=== PATIENT | female | born 1950 | race Caucasian/White ===

== ENCOUNTER 2017-02-02 11:15 | Emergency (ER) | payer MEDICAID, OTHER ==
[2017-02-02 11:27] VITALS: BP 137/83; PULSE 76; RESP 17; TEMP 98.7; O2SAT 97
[2017-02-02 11:42] VITALS: BMI 24.0
--- NOTE | 2017-02-02 12:13 | C.PDOC ---
History Of Present Illness 66 yo female c/o right ear ringing for 3 weeks. Was seen by PMD last week, treated with antibiotic drops but symptoms persist. Denies pain or discharge. Notes symptoms started after cataract surgery. No fever. Time Seen by Provider: 02/02/17 11:41 Chief Complaint (Nursing): ENT Problem History Per: Patient, Family History/Exam Limitations: Language Barrier Onset/Duration Of Symptoms: Days Current Symptoms Are (Timing): Still Present Past Medical History Vital Signs: Last Vital Signs Temp 98.7 F 02/02/17 11:26 Pulse 76 02/02/17 11:26 Resp 17 02/02/17 11:26 BP 137/83 02/02/17 11:26 Pulse Ox 97 02/02/17 12:15 - Medical History PMH: Arthritis, Asthma, Diabetes, HTN, Hypercholesterolemia, Osteoporosis Denies: Dementia, Chronic Kidney Disease Surgical History: Appendectomy (2002) - [facility] Procedures DRAINAGE OF RIGHT UPPER LOBE BRONCHUS, ENDO, DIAGN (08/08/16) EXCISION OF RIGHT UPPER LUNG LOBE, ENDO, DIAGN (08/08/16) Family History: States: Unknown Family Hx - Social History Hx Tobacco Use: No Hx Alcohol Use: No Hx Substance Use: No - Immunization History Hx Tetanus Toxoid Vaccination: No Hx Influenza Vaccination: No Hx Pneumococcal Vaccination: No Review Of Systems Except As Marked, All Systems Reviewed And Found Negative. Physical Exam - Physical Exam Appears: Well, Non-toxic, No Acute Distress Skin: Normal Color, Warm, Dry Head: Atraumatic Eye(s): bilateral: Normal Inspection, PERRL, EOMI Ear(s): Left: Normal, Right: TM Obscured By Wax, Bilateral: Other (NO mastoid or tragus tenderness. No exudates. ) Nose: Normal Oral Mucosa: Moist Throat: Normal, No Erythema, No Exudate Neck: Normal, Normal ROM, Supple Lymphatic: Normal Exam Chest: Symmetrical Cardiovascular: Rhythm Regular Respiratory: Normal Breath Sounds Back: Normal Inspection Extremity: Normal ROM Neurological/Psych: Oriented x3, Normal Speech, Other (no focal deficits) ED Course And Treatment O2 Sat by Pulse Oximetry: 97 Progress Note: Instructed ENT follow up in 1-2 days. Case discussed with Dr Ordonez, agreed upon plan and treatment. Disposition - Disposition Referrals: Danie Martin MD [Staff Provider] - Disposition: HOME/ ROUTINE Disposition Time: 12:07 Condition: STABLE Additional Instructions: Vaya a patino mdico o la clnica en 2-5 helton sin falta, para mas evaluacin. Yutan los medicamentos shannon indicado. Volver a la jourdan de emergencia en cualquier momento si los sntomas persisten o empeoran. Prescriptions: Bioflav,Lemon/Vit Bcomp,C [Lipo-Flavonoid Plus Caplet] 1 each PO TID #21 tablet Carbamide Peroxide [Debrox Ear Drops] 3 drop AD BID #1 bottle Instructions: Tinnitus (ED) Print Language: WELSH - Clinical Impression Clinical Impression: Tinnitus
== END 2017-02-02 12:28 | disposition home or self-care (01) ==
LOC: C.ER 11:15
DX: H93.11 Tinnitus, right ear (principal); M81.0 Age-related osteoporosis without current pathological fracture; E78.00 Pure hypercholesterolemia, unspecified; I10 Essential (primary) hypertension; E11.9 Type 2 diabetes mellitus without complications

== ENCOUNTER 2017-02-20 09:04 | Emergency (ER) | payer MEDICAID ==
[2017-02-20 09:05] VITALS: BMI 24.0
[2017-02-20 09:09] VITALS: TEMP 98.7
--- NOTE | 2017-02-20 10:35 | C.PDOC ---
History Of Present Illness 66-year-old female, presents to the emergency department with complaints of fall. Patient states she sustained an injury to her right knee, right arm an right side of face s/p fall, just prior to arrival. Patient denies LOC and is up to date w/ tetanus. No numbness or weakness. Time Seen by Provider: 02/20/17 09:18 Chief Complaint (Nursing): Lower Extremity Problem/Injury Past Medical History Reviewed: Historical Data, Nursing Documentation, Vital Signs Vital Signs: Last Vital Signs Temp 98.7 F 02/20/17 09:07 Pulse 88 02/20/17 10:42 Resp 18 02/20/17 10:42 BP 146/75 02/20/17 10:42 Pulse Ox 97 02/20/17 11:53 - Medical History PMH: Arthritis, Asthma, Diabetes, HTN, Hypercholesterolemia, Osteoporosis Denies: Dementia, Chronic Kidney Disease Surgical History: Appendectomy (2002) - [facility] Procedures DRAINAGE OF RIGHT UPPER LOBE BRONCHUS, ENDO, DIAGN (08/08/16) EXCISION OF RIGHT UPPER LUNG LOBE, ENDO, DIAGN (08/08/16) Family History: States: Unknown Family Hx - Social History Hx Tobacco Use: No Hx Alcohol Use: No Hx Substance Use: No - Immunization History Hx Tetanus Toxoid Vaccination: No Hx Influenza Vaccination: No Hx Pneumococcal Vaccination: No Physical Exam - Physical Exam Appears: Non-toxic, No Acute Distress Extremity: Other (right arm: tenderness to lateral forearm. No deformity or swelling. Tenderness to patella w abrasion) Neurological/Psych: Oriented x3, Other (right arm: tenderness to lateral forearm. No deformity or swelling. Tenderness to patella w abrasion) ED Course And Treatment O2 Sat by Pulse Oximetry: 97 Medical Decision Making Medical Decision Making: x rays all neg, Results discussed with pt Plan dc home symptomatic med Disposition Counseled Patient/Family Regarding: Diagnosis, Need For Followup - Disposition Referrals: Clinic,Med Surg [Primary Care Provider] - Disposition: HOME/ ROUTINE Disposition Time: 10:34 Condition: GOOD Additional Instructions: Tylenol or motrin for pain Instructions: Contusion in Adults (DC) Forms: Work Excuse Print Language: MALIAN - Clinical Impression Clinical Impression: Fall, Multiple contusions - Scribe Statement The provider has reviewed the documentation as recorded by the Scribhannah Sales All medical record entries made by the Scribe were at my direction and personally dictated by me. I have reviewed the chart and agree that the record accurately reflects my personal performance of the history, physical exam, medical decision making, and the department course for this patient. I have also personally directed, reviewed, and agree with the discharge instructions and disposition.
[2017-02-20] MEDS ORDERED: Bacitracin 500 Units/gm Oint Foilpak UD ONE (10:39)
[2017-02-20 10:43] VITALS: BP 146/75; PULSE 88; RESP 18
--- NOTE | 2017-02-20 10:57 | RAD ---
PROCEDURE: Mandible HISTORY: fall pain rt side COMPARISON: Not available TECHNIQUE: Multiple views including bilateral obliques FINDINGS: Examination technically limited. Unable to adequately evaluate temporomandibular joints. No evidence of fracture. No lytic or blastic osseous lesion. IMPRESSION: No n acute fracture. Limited evaluation of temporomandibular joints.
--- NOTE | 2017-02-20 11:01 | RAD ---
PROCEDURE: Right Knee Radiographs. HISTORY: Pain swelling fall COMPARISON: None. FINDINGS: BONES: No acute fracture. Sclerotic lesion in the lateral tibial condyles, likely benign bone island. JOINTS: Mild patellofemoral osteoarthritis. Medial and lateral compartments appear preserved. No articular erosions. JOINT EFFUSION: None. OTHER FINDINGS: None. IMPRESSION: Patellofemoral osteoarthritis. No fracture.
--- NOTE | 2017-02-20 11:01 | RAD ---
PROCEDURE: Radiographs of the Right Forearm HISTORY: fall pain COMPARISON: None available. TECHNIQUE: Frontal and lateral views obtained. FINDINGS: BONES: No fracture or destructive lesion. JOINT SPACES: Unremarkable. OTHER FINDINGS: None. IMPRESSION: Unremarkable radiographs of the right forearm.
[2017-02-20 11:08] VITALS: O2SAT 97
== END 2017-02-20 10:50 | disposition home or self-care (01) ==
LOC: SUPCPDRO 09:04 → C.ER 09:04
DX: T14.8 Other injury of unspecified body region (principal); S80.211A Abrasion, right knee, initial encounter; W18.30XA Fall on same level, unspecified, initial encounter

== ENCOUNTER 2017-06-08 08:31 | Emergency (ER) | payer MEDICAID ==
[2017-06-08 08:31] VITALS: BMI 24.0
--- NOTE | 2017-06-08 08:41 | C.PDOC ---
History Of Present Illness Hx obtained via trans 66-YEAR-OLD FEMALE, PRESENTS TO THE EMERGENCY DEPARTMENT WITH COMPLAINTS OF DYSURIA/BURNING SINCE YEST. +PELVIC PAIN OCC RADIATION L LOWER BACK. NO FEVER NV. HO KIDNEY STONES. S/P PYRIDIUM X 1 DOSE PMHx of arthritis, osteoporosis, T2DM, and asthma EXAM MILD DIST NONTOXIC ABD NEG NO CVAT Time Seen by Provider: 06/08/17 08:40 Chief Complaint (Nursing): Female Genitourinary History Per: Patient History/Exam Limitations: no limitations Onset/Duration Of Symptoms: Days Past Medical History Reviewed: Historical Data, Nursing Documentation, Vital Signs Vital Signs: Last Vital Signs Temp 99.1 F 06/08/17 11:04 Pulse 64 06/08/17 10:57 Resp 16 06/08/17 10:57 BP 121/67 06/08/17 10:57 Pulse Ox 97 06/08/17 10:57 - Medical History PMH: Arthritis, Asthma, Diabetes, HTN, Hypercholesterolemia, Osteoporosis Denies: Dementia, Chronic Kidney Disease Surgical History: Appendectomy (2002) - [facility] Procedures DRAINAGE OF RIGHT UPPER LOBE BRONCHUS, ENDO, DIAGN (08/08/16) EXCISION OF RIGHT UPPER LUNG LOBE, ENDO, DIAGN (08/08/16) Family History: States: No Known Family Hx - Social History Hx Tobacco Use: No Hx Alcohol Use: No Hx Substance Use: No - Immunization History Hx Tetanus Toxoid Vaccination: No Hx Influenza Vaccination: No Hx Pneumococcal Vaccination: No Review Of Systems Except As Marked, All Systems Reviewed And Found Negative. Constitutional: Negative for: Fever Cardiovascular: Negative for: Chest Pain Gastrointestinal: Negative for: Nausea, Vomiting, Abdominal Pain Genitourinary: Positive for: Dysuria, Pelvic Pain Musculoskeletal: Positive for: Back Pain Neurological: Negative for: Weakness, Numbness, Headache Physical Exam - Physical Exam Appears: Non-toxic, No Acute Distress (MILD) Skin: Warm, Dry, No Rash Nose: Normal Oral Mucosa: Moist Neck: Normal ROM Cardiovascular: Rhythm Regular, No Murmur Respiratory: No Accessory Muscle Use Back: No CVA Tenderness Extremity: Normal ROM Neurological/Psych: Oriented x3 ED Course And Treatment - Laboratory Results Result Diagrams: 06/08/17 09:19 06/08/17 09:50 O2 Sat by Pulse Oximetry: 99 Pulse Ox Interpretation: Normal Reevaluation Time: 11:04 Reassessment Condition: Improved Disposition Counseled Patient/Family Regarding: Studies Performed, Diagnosis, Need For Followup, Rx Given - Disposition Referrals: YOUR,OBGYN [Other] Disposition: HOME/ ROUTINE Disposition Time: 11:04 Condition: IMPROVED Prescriptions: Ibuprofen [Motrin] 400 mg PO QID #30 tab Nitrofurantoin Macrocrystals [Macrobid] 1 cap PO BID #14 cap Phenazopyridine HCl [Pyridium] 200 mg PO BID #6 tablet Instructions: Urinary Tract Infection in Women (ED) Forms: [employer] (Urdu) Print Language: PRYDEINIG - Clinical Impression Clinical Impression: UTI (urinary tract infection) - Scribe Statement The provider has reviewed the documentation as recorded by the Scribe (Zeina Sales) All medical record entries made by the Scribe were at my direction and personally dictated by me. I have reviewed the chart and agree that the record accurately reflects my personal performance of the history, physical exam, medical decision making, and the department course for this patient. I have also personally directed, reviewed, and agree with the discharge instructions and disposition.
[2017-06-08] MEDS ORDERED: Lidocaine 95 MG in Sodium Chloride 0.9% 100 ML IV STA (09:14)
[2017-06-08 09:19] LABS: RBC URINE 3 /hpf (0-3); URINE BACTERIA RARE (<OCC); URINE BILIRUBIN NEGATIVE (NEGATIVE); URINE BLOOD NEGATIVE (NEGATIVE); URINE COLOR Yellow (YELLOW); URINE GLUCOSE (UA) NORMAL (Normal); URINE KETONE NEGATIVE (NEGATIVE); URINE LEUKOCYTE ESTERASE 2+ Leu/uL (Negative); URINE PROTEIN NEGATIVE (NEGATIVE); URINE UROBILINOGEN NORMAL mg/dL (0.2-1.0); WBC URINE 17 /hpf (0-5)
[2017-06-08 09:23] LABS: BASO % 0.6 % (0.0-2.0); EOS # 0.1 K/uL (0.0-0.7); EOS % 1.4 % (0.0-4.0); HEMATOCRIT 43.1 % (34.0-47.0); LYMPH # 2.6 K/uL (1.0-4.3); LYMPH % 38.7 % (20.0-40.0); MEAN CORPUSCULAR HEMOGLOBIN 29.5 pg (27.0-31.0); MEAN CORPUSCULAR HGB CONC 32.9 g/dL (33.0-37.0); MONO # 0.7 K/uL (0.0-0.8); MONO % 10.8 % (0.0-10.0); RED CELL DISTRIBUTION WIDTH 14.2 % (11.5-14.5); WHITE BLOOD COUNT 6.7 K/uL (4.8-10.8)
[2017-06-08 09:24] LABS: MEAN CELL VOLUME 89.5 fL (81.0-99.0)
[2017-06-08 09:34] LABS: BLOOD UREA NITROGEN 12 mg/dL (7-17); CALCIUM 9.2 mg/dl (8.6-10.4); CARBON DIOXIDE 28 mmol/L (22-30); CHLORIDE 99 mmol/L (98-107); GFR AFRICAN-AMERICAN > 60; GLUCOSE,RANDOM 93 mg/dL (65-105); SODIUM 142 mmol/L (132-148)
[2017-06-08 09:40] LABS: POTASSIUM 5.8 mmol/L (3.6-5.2)
[2017-06-08 10:32] VITALS: RESP 16
[2017-06-08 10:35] VITALS: PULSE 64
--- NOTE | 2017-06-08 10:43 | CT ---
PROCEDURE: CT Abdomen and Pelvis without intravenous contrast HISTORY: L PELVIC PAIN COMPARISON: 01/10/2016 TECHNIQUE: Without contrast.. Contrast Dose: 0 Radiation dose: Total exam DLP = 340.92 mGy-cm. This CT exam was performed using one or more of the following dose reduction techniques: Automated exposure control, adjustment of the mA and/or kV according to patient size, and/or use of iterative reconstruction technique. FINDINGS: LOWER THORAX: Unremarkable. LIVER: Unremarkable. No gross lesion or ductal dilatation. GALLBLADDER AND BILE DUCTS: Cholelithiasis. No mural thickening or pericholecystic fluid. PANCREAS: Unremarkable. No gross lesion or ductal dilatation. SPLEEN: Unremarkable. ADRENALS: Unremarkable. No mass. KIDNEYS AND URETERS: Approximately 4 nonobstructing small left lower pole renal calculi, 2-3 mm each. VASCULATURE: Unremarkable. No aortic aneurysm. BOWEL: Sigmoid diverticulosis without evidence of diverticulitis. APPENDIX: Appearance consistent with prior appendectomy. Please correlate with history. PERITONEUM: Unremarkable. No free fluid. No free air. LYMPH NODES: Unremarkable. No enlarged lymph nodes. BLADDER: Unremarkable. REPRODUCTIVE: Unremarkable uterus. 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 Unchanged in appearance compared to prior examination. BONES: No acute fracture. OTHER FINDINGS: None. 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 No change from 01/10/2016. Cholelithiasis without evidence of cholecystitis. Status post appendectomy. Sigmoid diverticulosis without evidence of diverticulitis.
[2017-06-08] MEDS ORDERED: cefTRIAXone IV 1 gm in Dextros 50 ML IV STA (10:45)
[2017-06-08] MEDS ORDERED: cefTRIAXone IV 1 gm in Dextros 50 ML IVPB ONE (10:57)
[2017-06-08 11:03] VITALS: BP 121/67
[2017-06-08 11:04] VITALS: TEMP 99.1
[2017-06-08 11:06] VITALS: O2SAT 99
== END 2017-06-08 11:48 | disposition home or self-care (01) ==
LOC: C.ER 08:31
DX: N39.0 Urinary tract infection, site not specified (principal)
CPT/HCPCS: 36415; 74176; 80048; 81001; 84132; 85025; 87086; 96365; 96375; 99285; J0696; J1885; J2001

== ENCOUNTER 2017-11-01 08:37 | Emergency (ER) | payer MEDICAID, OTHER ==
[2017-11-01 08:38] VITALS: BMI 24.0
[2017-11-01 08:58] VITALS: RESP 18; TEMP 98
[2017-11-01 10:02] LABS: SQUAMOUS EPITHIAL 7 /hpf (0-5); URINE BACTERIA RARE (<OCC); URINE BILIRUBIN NEGATIVE (NEGATIVE); URINE BLOOD NEGATIVE (NEGATIVE); URINE CLARITY Hazy (Clear); URINE COLOR Yellow (YELLOW); URINE GLUCOSE (UA) NORMAL (Normal); URINE LEUKOCYTE ESTERASE 1+ Leu/uL (Negative); URINE NITRATE NEGATIVE (NEGATIVE); URINE PROTEIN NEGATIVE (NEGATIVE); URINE UROBILINOGEN NORMAL mg/dL (0.2-1.0)
[2017-11-01 10:30] VITALS: BP 142/74; PULSE 82; O2SAT 97
--- NOTE | 2017-11-01 11:32 | C.PDOC ---
History Of Present Illness 67 year old female presents to ED for evaluation of dysuria, and suprapubic abdominal pain for the last 2 months. Pt reports having history of UTI's in the past. Denies hematuria, fever, nausea, or vomiting. Chief Complaint (Nursing): Female Genitourinary History Per: Patient History/Exam Limitations: no limitations Onset/Duration Of Symptoms: Days Current Symptoms Are (Timing): Still Present Quality Of Discomfort: "Pain" Associated Symptoms: Urinary Symptoms. denies: Nausea, Vomiting Alleviating Factors: None Recent travel outside of the [place]: No Additional History Per: Patient Abnormal Vaginal Bleeding: No Past Medical History Reviewed: Historical Data, Nursing Documentation, Vital Signs Vital Signs: Last Vital Signs Temp 98 F 11/01/17 08:54 Pulse 82 11/01/17 10:30 Resp 18 11/01/17 10:30 BP 142/74 11/01/17 10:30 Pulse Ox 97 11/01/17 11:35 - Medical History PMH: Arthritis, Asthma, Diabetes, HTN, Hypercholesterolemia, Osteoporosis Denies: Dementia, Chronic Kidney Disease Surgical History: Appendectomy (2002) - [facility] Procedures DRAINAGE OF RIGHT UPPER LOBE BRONCHUS, ENDO, DIAGN (08/08/16) EXCISION OF RIGHT UPPER LUNG LOBE, ENDO, DIAGN (08/08/16) Family History: States: Unknown Family Hx - Social History Hx Tobacco Use: No Hx Alcohol Use: No Hx Substance Use: No - Immunization History Hx Tetanus Toxoid Vaccination: No Hx Influenza Vaccination: No Hx Pneumococcal Vaccination: No Review Of Systems Except As Marked, All Systems Reviewed And Found Negative. Constitutional: Negative for: Fever, Chills Cardiovascular: Negative for: Chest Pain, Palpitations Respiratory: Negative for: Cough, Shortness of Breath Gastrointestinal: Positive for: Abdominal Pain. Negative for: Nausea, Vomiting , Diarrhea, Constipation Genitourinary: Positive for: Dysuria. Negative for: Frequency, Hematuria, Vaginal Discharge Musculoskeletal: Negative for: Back Pain Physical Exam - Physical Exam Appears: Non-toxic, No Acute Distress Skin: Normal Color, Warm, Dry Head: Atraumatic, Normacephalic Eye(s): bilateral: Normal Inspection Oral Mucosa: Moist Cardiovascular: Rhythm Regular, No Murmur Respiratory: Normal Breath Sounds, No Rales, No Rhonchi, No Wheezing Gastrointestinal/Abdominal: Soft, Tenderness (minimal suprapubic), No Guarding, No Rebound Back: No CVA Tenderness Extremity: Normal ROM, No Deformity Neurological/Psych: Oriented x3, Normal Speech ED Course And Treatment O2 Sat by Pulse Oximetry: 97 (RA) Pulse Ox Interpretation: Normal Medical Decision Making Medical Decision Making: Plan: Urinalysis Reassess Pt is being discharged home with instructions to follow up with PMD in 1-2 days for further evaluation. Disposition - Disposition Referrals: [facility] Niko Govea, [Non-Staff] - Disposition: HOME/ ROUTINE Disposition Time: 10:10 Condition: GOOD Additional Instructions: Thank you for letting us take care of you today. The emergency medical care you received today was directed at your acute symptoms. If you were prescribed any medication, please fill it and take as directed. It may take several days for your symptoms to resolve. Return to the Emergency Department if your symptoms worsen, do not improve, or if you have any other problems. Please contact your doctor or call one of the physicians/clinics you have been referred to that are listed on the Patient Visit Information form that is included in your discharge packet. Bring any paperwork you were given at discharge with you along with any medications you are taking to your follow up visit. Our treatment cannot replace ongoing medical care by a primary care provider (PCP) outside of the emergency department. Thank you for allowing the [facility] team to be part of your care today. Follow up with your doctor in 3-4 days for re-evaluation and further management. Zaynab por dejarnos atenderlo hoy. La atencin mdica de emergencia que recibi hoy estaba dirigida a joelle sntomas agudos. Si le prescribieron algn medicamento, llnelo y tome segn las indicaciones. Joelle sntomas pueden tardar varios helton en resolverse. Regrese al Departamento de Emergencia si joelle s ntomas empeoran, no mejoran o si tiene algn otro problema. Comunquese con patino mdico o llame a mayra de los mdicos / clnicas a los que reyes sido referido que figura en el formulario de Informacin de visita del paciente que se incluye en patino paquete de dorota. Traiga todos los documentos que recibi al momento del dorota junto con los medicamentos que est tomando en patino visita de seguimiento. Nuestro tratamiento no puede reemplazar la atencin mdica en curso por parte de un proveedor de atencin primaria (PCP) fuera del departamento de emergencias. Zaynab por permitir que el equipo de [facility] sea parte de patino cuidado hoy. Ezequiel un seguimiento con patino mdico en 3-4 helton para leidy reevaluacin y administracin adicional. Prescriptions: Ibuprofen [Motrin] 400 mg PO Q6 PRN #20 tab PRN Reason: Pain, Moderate (4-7) Nitrofurantoin Macrocrystals [Macrobid] 100 mg PO BID #14 cap Instructions: Urinary Tract Infection in Women (ED) Forms: Gen Discharge Inst Italian Print Language: GREENLANDIC - Clinical Impression Clinical Impression: Cystitis - Scribe Statement The provider has reviewed the documentation as recorded by the Kt Dye All medical record entries made by the Scribe were at my direction and personally dictated by me. I have reviewed the chart and agree that the record accurately reflects my personal performance of the history, physical exam, medical decision making, and the department course for this patient. I have also personally directed, reviewed, and agree with the discharge instructions and disposition.
== END 2017-11-01 10:30 | disposition home or self-care (01) ==
LOC: C.ER 08:37
DX: N30.90 Cystitis, unspecified without hematuria (principal); E11.9 Type 2 diabetes mellitus without complications

== ENCOUNTER 2018-02-11 15:41 | Emergency (ER) | payer MEDICAID, OTHER ==
[2018-02-11 15:42] VITALS: BMI 24.0
[2018-02-11 15:53] VITALS: TEMP 97.5; O2SAT 100
[2018-02-11 16:36] LABS: BASO # 0.1 K/uL (0.0-0.2); BASO % 0.7 % (0.0-2.0); EOS # 0.1 K/uL (0.0-0.7); EOS % 1.6 % (0.0-4.0); HEMOGLOBIN 13.8 g/dL (11.0-16.0); LYMPH # 4.1 K/uL (1.0-4.3); LYMPH % 43.8 % (20.0-40.0); MEAN CELL VOLUME 92.1 fL (81.0-99.0); MEAN CORPUSCULAR HEMOGLOBIN 30.7 pg (27.0-31.0); MEAN CORPUSCULAR HGB CONC 33.4 g/dL (33.0-37.0); MEAN PLATELET VOLUME 8.7 fL (7.2-11.7); MONO # 0.9 K/uL (0.0-0.8); MONO % 10.1 % (0.0-10.0); NEUT # 4.1 K/uL (1.8-7.0); NEUT % 43.8 % (50.0-75.0); NRBC % 0.1 % (0.0-2.0); RBC 4.51 Mil/uL (3.80-5.20); WHITE BLOOD COUNT 9.3 K/uL (4.8-10.8)
[2018-02-11 16:42] VITALS: RESP 16
[2018-02-11 16:53] LABS: ALB/GLOB RATIO 1.2 (1.0-2.1); ALBUMIN 4.3 g/dL (3.5-5.0); ALT/SGPT 39 U/L (9-52); AST/SGOT 53 U/L (14-36); BLOOD UREA NITROGEN 20 mg/dL (7-17); CALCIUM 9.2 mg/dl (8.6-10.4); GFR AFRICAN-AMERICAN > 60; GFR NON-AFRICAN AMERICAN > 60
--- NOTE | 2018-02-11 17:05 | C.PDOC ---
History Of Present Illness 67 year female with a history of diabetes and asthma who is currently not taking any medications presents to the emergency department with complaints of pain in her mid-back region near her scapula that developed suddenly yesterday. Patient states she is employed at a [employer] where her job requires heavy lifting, but she states her back pain is not associated with any injury. Patient states that she took Advil with no relief. Patient reports that it hurts to take a deep breath but she denies shortness of breath, chest pain, cough, congestion, or fever. Time Seen by Provider: 02/11/18 16:10 Chief Complaint (Nursing): Shortness Of Breath History Per: Patient History/Exam Limitations: no limitations Onset/Duration Of Symptoms: Days (1) Current Symptoms Are (Timing): Still Present Initiating Event: Other (sudden onset). denies: Upper Respiratory Illness Quality: "Pain" Exacerbating Factor(s): Other (breathing) Associated Symptoms: denies: Chest Pain, Bloody Cough, Productive Cough, Other ( congestion) Past Medical History Reviewed: Historical Data, Nursing Documentation, Vital Signs Vital Signs: Last Vital Signs Temp 97.5 F L 02/11/18 15:48 Pulse 53 L 02/11/18 15:48 Resp 16 02/11/18 16:39 BP 147/86 02/11/18 15:48 Pulse Ox 100 02/11/18 17:15 - Medical History PMH: Arthritis, Asthma, Diabetes, HTN, Hypercholesterolemia, Osteoporosis Denies: Dementia, Chronic Kidney Disease Surgical History: Appendectomy (2002) - [facility] Procedures DRAINAGE OF RIGHT UPPER LOBE BRONCHUS, ENDO, DIAGN (08/08/16) EXCISION OF RIGHT UPPER LUNG LOBE, ENDO, DIAGN (08/08/16) Family History: States: No Known Family Hx - Social History Hx Tobacco Use: No Hx Alcohol Use: No Hx Substance Use: No - Immunization History Hx Tetanus Toxoid Vaccination: Yes Hx Influenza Vaccination: Yes Hx Pneumococcal Vaccination: Yes Review Of Systems Constitutional: Negative for: Fever ENT: Negative for: Nose Congestion Cardiovascular: Negative for: Chest Pain Respiratory: Negative for: Cough, Shortness of Breath Gastrointestinal: Negative for: Abdominal Pain Physical Exam - Physical Exam Appears: Non-toxic, No Acute Distress Skin: Normal Color, Warm Head: Atraumatic, Normacephalic Eye(s): bilateral: Normal Inspection Neck: Normal ROM, Trachea Midline, Supple Chest: Symmetrical, No Tenderness Cardiovascular: Rhythm Regular Respiratory: Normal Breath Sounds Gastrointestinal/Abdominal: Normal Exam, Soft, No Tenderness Back: Paraspinal Tenderness, Other (muscular tenderness) ED Course And Treatment - Laboratory Results Result Diagrams: 02/11/18 16:27 02/11/18 16:27 Lab Interpretation: No Acute Changes ECG: Interpreted By Me ECG Rhythm: Sinus Rhythm (with PACs), ST/T Changes (nonspecific) O2 Sat by Pulse Oximetry: 100 (RA) Pulse Ox Interpretation: Normal - Radiology CXR: Viewed By Me, Read By Radiologist CXR Interpretation: Yes: No Acute Disease - Other Rad CXR X-Ray: Viewed By Me, Read By Radiologist Interpretation: HISTORY: SOB. COMPARISON: Portable chest 08/13/2016. TECHNIQUE: Chest PA and lateral. FINDINGS: LUNGS: No acute pulmonary disease identified with fibrotic changes in the right apex again evident elevated right hemidiaphragm slightly and resulting in volume loss of the right lung somewhat. PLEURA: No significant pleural effusion identified. No pneumothorax apparent. CARDIOVASCULAR: Mild cardiomegaly reiterated. No pulmonary vascular congestion. OSSEOUS STRUCTURES: No significant abnormalities. VISUALIZED UPPER ABDOMEN: Normal. OTHER FINDINGS: None. IMPRESSION: Stable chronic fibrosis right apex and volume loss right hemithorax. No acute cardiopulmonary disease appreciable. Stable mild cardiomegaly. Progress Note: Plan: EKG. CMP. Troponin. CBC. CXR Two Views Reevaluation Time: 17:41 Reassessment Condition: Improved (Feels better and the pain has calmed down now. ) Disposition Counseled Patient/Family Regarding: Studies Performed, Diagnosis, Need For Followup, Rx Given - Disposition Referrals: Mary Curtis [Staff Provider] - Disposition: HOME/ ROUTINE Disposition Time: 17:45 Condition: IMPROVED Prescriptions: Diazepam [Valium] 2 mg PO HS PRN #7 tablet PRN Reason: Pain, Severe (8-10) Instructions: Muscle Spasms (DC) Forms: [facility] [employer] (Serbian) Print Language: UZBEK - Clinical Impression Clinical Impression: Dorsal back pain - Scribe Statement The provider has reviewed the documentation as recorded by the Scribe (Osmin Kam) Provider Attestation: All medical record entries made by the Scribe were at my direction and personally dictated by me. I have reviewed the chart and agree that the record accurately reflects my personal performance of the history, physical exam, medical decision making, and the department course for this patient. I have also personally directed, reviewed, and agree with the discharge instructions and disposition.
--- NOTE | 2018-02-11 17:10 | RAD ---
HISTORY: SOB COMPARISON: Portable chest 08/13/2016. TECHNIQUE: Chest PA and lateral FINDINGS: LUNGS: No acute pulmonary disease identified with fibrotic changes in the right apex again evident elevated right hemidiaphragm slightly and resulting in volume loss of the right lung somewhat. PLEURA: No significant pleural effusion identified. No pneumothorax apparent. CARDIOVASCULAR: Mild cardiomegaly reiterated. No pulmonary vascular congestion. OSSEOUS STRUCTURES: No significant abnormalities. VISUALIZED UPPER ABDOMEN: Normal. OTHER FINDINGS: None. IMPRESSION: Stable chronic fibrosis right apex and volume loss right hemithorax. No acute cardiopulmonary disease appreciable. Stable mild cardiomegaly.
[2018-02-11 17:48] VITALS: BP 129/74; PULSE 87
--- NOTE | 2018-02-13 13:21 | CARD ---
APPROVED REPORT EKG Measurement Heart [id number] ND [id number] <Conclusion> Sinus rhythm with premature atrial complexes Nonspecific T wave abnormality Abnormal ECG
== END 2018-02-11 17:59 | disposition home or self-care (01) ==
LOC: C.ER 15:41
DX: M54.9 Dorsalgia, unspecified (principal); I10 Essential (primary) hypertension; E78.00 Pure hypercholesterolemia, unspecified

== ENCOUNTER 2018-03-05 12:21 | Emergency (ER) | payer MEDICAID ==
[2018-03-05 12:21] VITALS: BMI 24.0
[2018-03-05 12:30] VITALS: BP 152/83; PULSE 86; RESP 20; TEMP 99; O2SAT 99
--- NOTE | 2018-03-05 14:14 | RAD ---
PROCEDURE: Radiographs of the Lumbar Spine. 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 No listhesis. No fracture. Thoraco lumbar spondylosis DISC SPACES: L1-2 disc space narrowing -some OTHER FINDINGS: None. IMPRESSION: Schmorl's node indentations in spondylosis -degenerative disc disease. Overall spondylosis progressive since 2017
--- NOTE | 2018-03-05 15:32 | C.PDOC ---
History Of Present Illness 67 y/o female presents to the ED complaining of low back pain after twisting her back yesterday. Denies blunt trauma or fall. Patient did not take any pain meds at home. Otherwise she has no weakness, changes in sensation, abdominal pain, fever, chills, dysuria, hematuria, or incontinence. Time Seen by Provider: 03/05/18 12:51 Chief Complaint (Nursing): Back Pain History Per: Patient History/Exam Limitations: no limitations Onset/Duration Of Symptoms: Days Current Symptoms Are (Timing): Still Present Past Medical History Reviewed: Historical Data, Nursing Documentation, Vital Signs Vital Signs: Last Vital Signs Temp 99.0 F 03/05/18 12:28 Pulse 86 03/05/18 12:28 Resp 20 03/05/18 12:28 BP 152/83 H 03/05/18 12:28 Pulse Ox 99 03/05/18 15:36 - Medical History PMH: Arthritis, Asthma, Diabetes, HTN, Hypercholesterolemia, Osteoporosis Denies: Dementia, Chronic Kidney Disease Surgical History: Appendectomy (2002) - [facility] Procedures DRAINAGE OF RIGHT UPPER LOBE BRONCHUS, ENDO, DIAGN (08/08/16) EXCISION OF RIGHT UPPER LUNG LOBE, ENDO, DIAGN (08/08/16) Family History: States: Unknown Family Hx - Social History Hx Tobacco Use: No Hx Alcohol Use: No Hx Substance Use: No - Immunization History Hx Tetanus Toxoid Vaccination: Yes Hx Influenza Vaccination: Yes Hx Pneumococcal Vaccination: Yes Review Of Systems Except As Marked, All Systems Reviewed And Found Negative. Constitutional: Negative for: Fever, Chills Gastrointestinal: Negative for: Abdominal Pain Genitourinary: Negative for: Dysuria, Incontinence, Hematuria Musculoskeletal: Positive for: Back Pain Neurological: Negative for: Weakness, Numbness Physical Exam - Physical Exam Appears: Non-toxic, No Acute Distress Skin: Normal Color, Warm, Dry Head: Atraumatic, Normacephalic Eye(s): bilateral: Normal Inspection, PERRL, EOMI Nose: Normal Oral Mucosa: Moist Neck: Normal ROM, Supple Chest: Symmetrical Respiratory: No Accessory Muscle Use Back: No Vertebral Tenderness, Paraspinal Tenderness (diffuse low back tenderness) Extremity: Bilateral: Atraumatic, Normal Color And Temperature, Normal ROM Pulses: Left Dorsalis Pedis: Normal, Right Dorsalis Pedis: Normal Neurological/Psych: Oriented x3, Normal Speech, Normal Motor, Normal Sensation Gait: Steady ED Course And Treatment O2 Sat by Pulse Oximetry: 99 (RA) Pulse Ox Interpretation: Normal - Other Rad XR lumbar spine X-Ray: Viewed By Me, Read By Radiologist Interpretation: Accession No. : [id number]. Patient Name / ID : ELISABET JACOBS / [id number]. Exam Date : 03/05/2018 13:00:41 ( Approved ). Study Comment : Sex / Age : F / 67Y. Creator : Stormy Kang. Dictator : Stormy Kang. Woods Boss : Table Cut Off Saw Operator : Stormy Townsend. Approver2 : Report Date : 03/05/2018 14:13:03. My Comment : . PROCEDURE: Radiographs of the Lumbar Spine. HISTORY: r/o fx. COMPARISON: Neural advertising solicitor image CT abdomen and pelvis 06/08/2017. FINDINGS : BONES: Normal alignment. No listhesis. No fracture. [place] lumbar spondylosis. DISC SPACES: L1-2 disc space narrowing -some. OTHER FINDINGS: None. IMPRESSION: Schmorl's node indentations in spondylosis -degenerative disc disease. Overall spondylosis progressive since 2017 Medical Decision Making Medical Decision Making: Impression: Back pain Plan: --X-Ray lumbar spine --Motrin PO Informed patient of x-ray results. Counseled regarding diagnosis and the need for follow up. Patient agrees with discharge plan. Disposition Counseled Patient/Family Regarding: Studies Performed, Diagnosis, Need For Followup - Disposition Referrals: Amol Govea, [Non-Staff] - Disposition: HOME/ ROUTINE Disposition Time: 13:30 Condition: STABLE Additional Instructions: REYNALDO BHANDARI, thank you for letting us take care of you today. Your provider was Jarred Smith DO and you were treated for LT SIDE BACK PAIN. The emergency medical care you received today was directed at your acute symptoms. If you were prescribed any medication, please fill it and take as directed. It may take several days for your symptoms to resolve. Return to the Emergency Department if your symptoms worsen, do not improve, or if you have any other problems. Please contact your doctor or call one of the physicians/clinics you have been referred to that are listed on the Patient Visit Information form that is included in your discharge packet. Bring any paperwork you were given at discharge with you along with any medications you are taking to your follow up visit. Our treatment cannot replace ongoing medical care by a primary care provider outside of the emergency department. Thank you for allowing the [facility] team to be part of your care today. Follow up with your primary care doctor in 2-3 days for re-evaluation and further management. REYNALDO BHANDARI, zaynab por dejarnos atenderlo hoy. Andrade proveedor fue Jarred Passafaro DO y usted recibi tratamiento para LT SIDE BACK DOLOR. La atencin m dica de emergencia que recibi hoy estaba dirigida a joelle sntomas agudos. Si le prescribieron algn medicamento, llnelo y tome segn las indicaciones. Joelle s ntomas pueden tardar varios helton en resolverse. Regrese al Departamento de Emergencia si joelle sntomas empeoran, no mejoran o si tiene algn otro problema. Comunquese con andrade mdico o llame a mayra de los mdicos / clnicas a los que reyes sido referido que figura en el formulario de Informacin de visita del paciente que se incluye en andrade paquete de dorota. Traiga todos los documentos que recibi al momento del dorota junto con los medicamentos que est tomando en andrade visita de seguimiento. Nuestro tratamiento no puede reemplazar la atencin mdica en curso por un proveedor de atencin primaria fuera del departamento de emergencia. Zaynab por permitir que el equipo de [facility] sea parte de andrade cuidado hoy. Ezequiel un seguimiento con andrade mdico de atencin primaria en 2-3 helton para leidy nueva evaluacin y administracin adicional. Prescriptions: Ibuprofen [Motrin] 600 mg PO Q6 PRN #20 tab PRN Reason: Pain, Moderate (4-7) Instructions: Low Back Pain (DC) Forms: Gen Discharge Inst Welsh Print Language: OCCITAN - POA Present On Arrival: None - Clinical Impression Clinical Impression: Low back pain - Scribe Statement The provider has reviewed the documentation as recorded by the Scribe (Karen Brunson) Provider Attestation: All medical record entries made by the Scribe were at my direction and personally dictated by me. I have reviewed the chart and agree that the record accurately reflects my personal performance of the history, physical exam, medical decision making, and the department course for this patient. I have also personally directed, reviewed, and agree with the discharge instructions and disposition.
== END 2018-03-05 14:33 | disposition home or self-care (01) ==
LOC: C.ER 12:21
DX: M54.5 Low back pain (principal)

== ENCOUNTER 2018-07-21 11:11 | Emergency (ER) | payer MEDICAID, OTHER ==
[2018-07-21 11:11] VITALS: BMI 24.0
[2018-07-21 11:32] VITALS: RESP 20; TEMP 98.7; O2SAT 98
[2018-07-21 12:33] LABS: BASO % 0.3 % (0.0-2.0); EOS # 0.1 K/uL (0.0-0.7); EOS % 0.8 % (0.0-4.0); HEMOGLOBIN 13.6 g/dL (11.0-16.0); LYMPH # 2.7 K/uL (1.0-4.3); LYMPH % 30.9 % (20.0-40.0); MEAN CORPUSCULAR HEMOGLOBIN 30.9 pg (27.0-31.0); MEAN CORPUSCULAR HGB CONC 33.6 g/dL (33.0-37.0); MEAN PLATELET VOLUME 8.9 fL (7.2-11.7); MONO # 0.8 K/uL (0.0-0.8); MONO % 9.4 % (0.0-10.0); NEUT % 58.6 % (50.0-75.0); NRBC % 0.1 % (0.0-2.0); RBC 4.41 Mil/uL (3.80-5.20); RED CELL DISTRIBUTION WIDTH 14.1 % (11.5-14.5); WHITE BLOOD COUNT 8.6 K/uL (4.8-10.8)
[2018-07-21 12:41] LABS: SQUAMOUS EPITHIAL 2 /hpf (0-5); URINE BACTERIA FEW (<OCC); URINE BILIRUBIN NEGATIVE (NEGATIVE); URINE BLOOD NEGATIVE (NEGATIVE); URINE CLARITY Hazy (Clear); URINE COLOR Yellow (YELLOW); URINE GLUCOSE (UA) NORMAL (Normal); URINE LEUKOCYTE ESTERASE 3+ Leu/uL (Negative); URINE PROTEIN NEGATIVE (NEGATIVE); URINE UROBILINOGEN NORMAL mg/dL (0.2-1.0)
[2018-07-21 12:45] LABS: ALB/GLOB RATIO 1.3 (1.0-2.1); ALBUMIN 4.3 g/dL (3.5-5.0); ALT/SGPT 21 U/L (9-52); AST/SGOT 20 U/L (14-36); BLOOD UREA NITROGEN 14 mg/dL (7-17); CALCIUM 9.6 mg/dl (8.6-10.4); GFR NON-AFRICAN AMERICAN > 60; LIPASE 54 U/L (23-300)
--- NOTE | 2018-07-21 13:12 | C.PDOC ---
History Of Present Illness 68 y/o female presents to the ED complaining of pelvic pain associated with dysuria and urinary frequency. Denies associated fever, back pain, nausea, vomiting, diarrhea, or incontinence. She reports compliance with her chronic medications. States her blood sugar yesterday was 120. Patient also reports she has had UTIs in the past, and current symptoms feel similar to prior episodes. Time Seen by Provider: 07/21/18 11:43 Chief Complaint (Nursing): Abdominal Pain History Per: Diet Attendant (#[id number]) History/Exam Limitations: no limitations Onset/Duration Of Symptoms: Days (x3) Current Symptoms Are (Timing): Still Present Associated Symptoms: Urinary Symptoms Past Medical History Reviewed: Historical Data, Nursing Documentation, Vital Signs Vital Signs: Last Vital Signs Temp 98.7 F 07/21/18 11:26 Pulse 87 07/21/18 11:26 Resp 20 07/21/18 11:26 BP 147/76 07/21/18 11:26 Pulse Ox 98 07/21/18 11:26 - Medical History PMH: Arthritis, Asthma, Diabetes, HTN, Hypercholesterolemia, Osteoporosis Denies: Dementia, Chronic Kidney Disease [facility] DRAINAGE OF RIGHT UPPER LOBE BRONCHUS, ENDO, DIAGN (08/08/16) EXCISION OF RIGHT UPPER LUNG LOBE, ENDO, DIAGN (08/08/16) Family History: States: Unknown Family Hx - Social History Hx Tobacco Use: No Hx Alcohol Use: No Hx Substance Use: No - Immunization History Hx Tetanus Toxoid Vaccination: Yes Hx Influenza Vaccination: No Hx Pneumococcal Vaccination: No Review Of Systems Constitutional: Negative for: Fever, Chills Respiratory: Negative for: Shortness of Breath Gastrointestinal: Positive for: Abdominal Pain. Negative for: Nausea, Vomiting Genitourinary: Positive for: Frequency. Negative for: Incontinence, Vaginal Discharge, Vaginal Bleeding Neurological: Negative for: Weakness, Numbness, Incoordination Physical Exam - Physical Exam Appears: Well, Non-toxic, No Acute Distress Skin: Normal Color, Warm, Dry Head: Atraumatic, Normacephalic Eye(s): bilateral: Normal Inspection, EOMI Nose: Normal Oral Mucosa: Moist Neck: Other Chest: Symmetrical Cardiovascular: Rhythm Regular Respiratory: Normal Breath Sounds, No Rales, No Rhonchi, No Wheezing Gastrointestinal/Abdominal: Bowel Sounds (normal), Soft, Tenderness (mild suprapubic tenderness), No Distention, No Guarding Back: No CVA Tenderness, No Vertebral Tenderness Extremity: Bilateral: Atraumatic, Normal Color And Temperature, Normal ROM Neurological/Psych: Oriented x3, Normal Speech, Other (No focal deficit) ED Course And Treatment - Laboratory Results Result Diagrams: 07/21/18 12:29 07/21/18 12:29 O2 Sat by Pulse Oximetry: 98 (RA) Pulse Ox Interpretation: Normal Progress Note: Prior records evaluated, patient seen here for similar visit on 11/01/17. Blood work and urine sent to lab for analysis. Urine culture sent. Patient informed that urine shows UTI, and treated with Macrobid PO in the ED. Patient is resting comfortably, tolerating PO, and is afebrile at this time. Patient will be discharged home, given rx for antibiotics, and instructed to follow up with his/her physician in 1-2 days without fail. Reassessment Condition: Improved Disposition - Disposition Disposition: HOME/ ROUTINE Disposition Time: 13:10 Condition: STABLE Additional Instructions: Vaya a patino mdico o la clnica en 1-3 helton sin falta, para mas evaluacin. Story los medicamentos shannon indicado. Volver a la jourdan de emergencia en cualquier mom ento si los sntomas persisten o empeoran. Prescriptions: Nitrofurantoin Macrocrystals [Macrobid] 1 cap PO BID #14 cap Instructions: Urinary Tract Infection, Adult (DC) Forms: [facility] (Vietnamese) Print Language: MALTESE - Clinical Impression Clinical Impression: UTI (urinary tract infection) - PA / ORACLE FUSION DEVELOPER / Resident Statement MD/DO has reviewed & agrees with the documentation as recorded. - Scribe Statement The provider has reviewed the documentation as recorded by the Scribe (Karen Brunson) All medical record entries made by the Scribe were at my direction and personally dictated by me. I have reviewed the chart and agree that the record accurately reflects my personal performance of the history, physical exam, medical decision making, and the department course for this patient. I have also personally directed, reviewed, and agree with the discharge instructions and disposition.
[2018-07-21 13:34] VITALS: BP 125/64; PULSE 80
== END 2018-07-21 13:43 | disposition home or self-care (01) ==
LOC: C.ER 11:11
DX: N39.0 Urinary tract infection, site not specified (principal); I10 Essential (primary) hypertension; E11.9 Type 2 diabetes mellitus without complications; E78.00 Pure hypercholesterolemia, unspecified

== ENCOUNTER 2018-09-11 13:06 | Emergency (ER) | payer MEDICAID, OTHER ==
[2018-09-11 13:07] VITALS: BMI 24.0
[2018-09-11 14:15] LABS: BASO % 0.5 % (0.0-2.0); EOS # 0.1 K/uL (0.0-0.7); EOS % 1.2 % (0.0-4.0); LYMPH # 3.3 K/uL (1.0-4.3); LYMPH % 34.9 % (20.0-40.0); MEAN CORPUSCULAR HEMOGLOBIN 31.8 pg (27.0-31.0); MEAN CORPUSCULAR HGB CONC 33.6 g/dL (33.0-37.0); MEAN PLATELET VOLUME 8.9 fL (7.2-11.7); MONO # 0.9 K/uL (0.0-0.8); MONO % 9.1 % (0.0-10.0); NEUT # 5.2 K/uL (1.8-7.0); NEUT % 54.3 % (50.0-75.0); RBC 4.41 Mil/uL (3.80-5.20); RED CELL DISTRIBUTION WIDTH 13.1 % (11.5-14.5); WHITE BLOOD COUNT 9.6 K/uL (4.8-10.8)
[2018-09-11 14:20] LABS: SQUAMOUS EPITHIAL 1 /hpf (0-5); URINE BILIRUBIN NEGATIVE (NEGATIVE); URINE BLOOD NEGATIVE (NEGATIVE); URINE CLARITY Clear (Clear); URINE COLOR Yellow (YELLOW); URINE GLUCOSE (UA) NORMAL (Normal); URINE LEUKOCYTE ESTERASE TRACE Leu/uL (Negative); URINE PROTEIN NEGATIVE (NEGATIVE); URINE UROBILINOGEN NORMAL mg/dL (0.2-1.0)
[2018-09-11 14:22] LABS: MEAN CELL VOLUME 94.5 fL (81.0-99.0)
--- NOTE | 2018-09-11 14:23 | C.PDOC ---
History Of Present Illness 68 year old female presents to the ED for an evaluation of diffuse abdominal pain onset for few days with associated symptoms of nausea, diarrhea, and vomiting. Patient has a history of appendectomy. Otherwise, patient denies any recent travels, fever, antibiotic use or any new food intake. Time Seen by Provider: 09/11/18 13:20 Chief Complaint (Nursing): Abdominal Pain History Per: Patient History/Exam Limitations: no limitations Onset/Duration Of Symptoms: Days Current Symptoms Are (Timing): Still Present Location Of Pain/Discomfort: Diffuse Quality Of Discomfort: "Pain" Past Medical History Reviewed: Historical Data, Nursing Documentation, Vital Signs Vital Signs: Last Vital Signs Temp 98.5 F 09/11/18 13:44 Pulse 85 09/11/18 13:44 Resp 20 09/11/18 13:44 BP 147/84 09/11/18 13:44 Pulse Ox 98 09/11/18 13:44 - Medical History PMH: Arthritis, Asthma, Diabetes, HTN, Hypercholesterolemia, Osteoporosis Denies: Dementia, Chronic Kidney Disease Surgical History: Appendectomy (2002) - [facility] Procedures DRAINAGE OF RIGHT UPPER LOBE BRONCHUS, ENDO, DIAGN (08/08/16) EXCISION OF RIGHT UPPER LUNG LOBE, ENDO, DIAGN (08/08/16) Family History: States: Unknown Family Hx - Social History Hx Tobacco Use: No Hx Alcohol Use: No Hx Substance Use: No - Immunization History Hx Tetanus Toxoid Vaccination: Yes Hx Influenza Vaccination: No Hx Pneumococcal Vaccination: No Review Of Systems Constitutional: Negative for: Fever, Chills Gastrointestinal: Positive for: Nausea, Vomiting, Abdominal Pain, Diarrhea Physical Exam - Physical Exam Appears: Well, No Acute Distress Skin: Normal Color, Warm, Dry Head: Atraumatic, Normacephalic Eye(s): bilateral: Normal Inspection, PERRL, EOMI Neck: Normal Chest: Symmetrical Cardiovascular: Rhythm Regular Respiratory: Normal Breath Sounds Gastrointestinal/Abdominal: Soft, Tenderness (diffuse), No Guarding, No Rebound Back: Normal Inspection Extremity: Normal ROM, No Tenderness, No Pedal Edema, No Deformity Neurological/Psych: Oriented x3, Normal Speech Gait: Steady ED Course And Treatment - Laboratory Results Result Diagrams: 09/11/18 14:01 09/11/18 14:01 O2 Sat by Pulse Oximetry: 98 (RA) Pulse Ox Interpretation: Normal - CT Scan/US CT abd/pelvis Other Rad Studies (CT/US): Read By Radiologist, Radiology Report Reviewed CT/US Interpretation: Accession No. : [id number]. Patient Name / ID : ELISABET JACOBS / [id number]. Exam Date : 09/11/2018 15:57:42 ( Approved ). Study Comment : Sex / Age : F / 68Y. Creator : Destinee Joshi. Dictator : Anastasiia Diaz MD. Cable Armorer Operator : Glass Setter : Anastasiia Diaz MD. Approver2 : Report Date : 09/11/2018 16:19:51. My Comment : . Date of service: 09/11/2018. PROCEDURE: CT Abdomen and Pelvis with contrast. HISTORY: Abdominal pain. COMPARISON: 06/08/2017. TECHNIQUE: CT scan of the abdomen and pelvis was performed after administration of intravenous contrast. Oral contrast was not administered. Coronal and sagittal reformatted images were obtained. Contrast dose: 100 mL Visipaque. Radiation dose: Total exam DLP = 303.47 mGy-cm. This CT exam was performed using one or more of the following dose reduction techniques: Automated exposure control, adjustment of the mA and/or kV according to patient size, and/or use of iterative reconstruction technique. FINDINGS: LOWER THORAX: There is mild centrilobular emphysema. LIVER: Normal in size with homogeneous enhancement. Fatty liver. No gross lesion or ductal dilatation. GALLBLADDER AND BILE DUCTS: Cholelithiasis. No wall thickening or pericholecystic fluid. PANCREAS: Normal in size with homogeneous enhancement. No gross lesion or ductal dilatation. SPLEEN: Normal in size and appearance. ADRENALS: No discrete nodule. KIDNEYS AND URETERS: Normal in size with homogeneous enhancement. No hydronephrosis. No solid mass. Are small nonobstructing stones in the lower pole measuring up to 3 mm. VASCULATURE: No aortic aneurysm. BOWEL: Evaluation of the bowel is limited in the absence of oral contrast. There is mild dilatation of fluid-filled small bowel loops and ascending colon. There is large amount stool in the colon. There is left colonic diverticulosis without CT evidence for acute diverticulitis. APPENDIX: Surgically absent. PERITONEUM: No free fluid. No free air. LYMPH NODES: No enlarged lymph nodes. BLADDER: Well distended and normal in appearance. REPRODUCTIVE: The uterus is normal in size. BONES: No acute fracture. There is diffuse bone demineralization and multilevel degenerative changes in the spine. OTHER FINDINGS: Stable periurethral calcifications in the lower polyps which may represent diverticulum with calcifications within. IMPRESSION: Fluid-filled mildly dilated small bowel loops and ascending colon may represent nonspecific acute infectious/inflammatory colitis and enteritis. No bowel obstruction. Left colonic diverticulosis without CT evidence for acute diverticulitis. Small nonobstructing stones in the lower pole of the left kidney. Cholelithiasis. Fatty liver. Medical Decision Making Medical Decision Making: Time: 1346 Impression: abdominal pain Initial Plan: --ABD & Pelvis IV Contrast Only [CT] --Complete Metabolic Panel --Lipase --Magnesium --Phosphorous --CBC w/ Differential --Urinalysis Lab and imaging results discussed with patient and family. Stable for discharge home at this time. Advised outpatient followup, or returning to the ED for any new or worsening symptoms. Disposition - Disposition Disposition: HOME/ ROUTINE Disposition Time: 17:04 Condition: STABLE Additional Instructions: REYNALDO BHANDARI, thank you for letting us take care of you today. Your provider was Babita Desir MD and you were treated for STOMACH PAIN/VOMITING. The emergency medical care you received today was directed at your acute symptoms. If you were prescribed any medication, please fill it and take as directed. It may take several days for your symptoms to resolve. Return to the Emergency Department if your symptoms worsen, do not improve, or if you have any other problems. Please contact your doctor or call one of the physicians/clinics you have been referred to that are listed on the Patient Visit Information form that is in cluded in your discharge packet. Bring any paperwork you were given at discharge with you along with any medications you are taking to your follow up visit. Our treatment cannot replace ongoing medical care by a primary care provider outside of the emergency department. Thank you for allowing the [facility] team to be part of your care today. If you had an X-Ray or CT scan: A Radiologist will review the ED reading if any change in treatment is needed we will contact you. If you had a blood, urine, or wound culture: It will take several days for the results, if any change in treatment is needed we will contact you. If you had an STI test: It will take 48 hours for the results. Please call after 1 week if you have not heard back. Instructions: Acute Abdomen (Belly Pain), Adult (DC) Forms: [facility] (Tajik) Print Language: HEBREW - Clinical Impression Clinical Impression: Abdominal pain - Scribe Statement The provider has reviewed the documentation as recorded by the Scribe (Shalini Moya) All medical record entries made by the Scribe were at my direction and personally dictated by me. I have reviewed the chart and agree that the record accurately reflects my personal performance of the history, physical exam, medical decision making, and the department course for this patient. I have also personally directed, reviewed, and agree with the discharge instructions and disposition.
[2018-09-11 14:31] LABS: ALB/GLOB RATIO 1.4 (1.0-2.1); ALBUMIN 4.6 g/dL (3.5-5.0); ALT/SGPT 21 U/L (9-52); AST/SGOT 25 U/L (14-36); BLOOD UREA NITROGEN 12 mg/dL (7-17); CALCIUM 9.1 mg/dl (8.6-10.4); GFR NON-AFRICAN AMERICAN > 60; LIPASE 51 U/L (23-300)
[2018-09-11] MEDS ORDERED: Iodixanol 320 MG/ML 100 ML BOTTLE IV ONE (15:49)
[2018-09-11 16:21] VITALS: PULSE 73
--- NOTE | 2018-09-11 16:36 | CT ---
Date of service: 09/11/2018 PROCEDURE: CT Abdomen and Pelvis with contrast HISTORY: Abdominal pain COMPARISON: 06/08/2017. TECHNIQUE: CT scan of the abdomen and pelvis was performed after administration of intravenous contrast. Oral contrast was not administered. Coronal and sagittal reformatted images were obtained. Contrast dose: 100 mL Visipaque Radiation dose: Total exam DLP = 303.47 mGy-cm. This CT exam was performed using one or more of the following dose reduction techniques: Automated exposure control, adjustment of the mA and/or kV according to patient size, and/or use of iterative reconstruction technique. FINDINGS: LOWER THORAX: There is mild centrilobular emphysema. LIVER: Normal in size with homogeneous enhancement. Fatty liver. No gross lesion or ductal dilatation. GALLBLADDER AND BILE DUCTS: Cholelithiasis. No wall thickening or pericholecystic fluid. PANCREAS: Normal in size with homogeneous enhancement. No gross lesion or ductal dilatation. SPLEEN: Normal in size and appearance. ADRENALS: No discrete nodule. KIDNEYS AND URETERS: Normal in size with homogeneous enhancement. No hydronephrosis. No solid mass. Are small nonobstructing stones in the lower pole measuring up to 3 mm. VASCULATURE: No aortic aneurysm. BOWEL: Evaluation of the bowel is limited in the absence of oral contrast. There is mild dilatation of fluid-filled small bowel loops and ascending colon. There is large amount stool in the colon. There is left colonic diverticulosis without CT evidence for acute diverticulitis. APPENDIX: Surgically absent. PERITONEUM: No free fluid. No free air. LYMPH NODES: No enlarged lymph nodes. BLADDER: Well distended and normal in appearance. REPRODUCTIVE: The uterus is normal in size. BONES: No acute fracture. There is diffuse bone demineralization and multilevel degenerative changes in the spine. OTHER FINDINGS: Stable periurethral calcifications in the lower polyps which may represent diverticulum with calcifications within. IMPRESSION: Fluid-filled mildly dilated small bowel loops and ascending colon may represent nonspecific acute infectious/inflammatory colitis and enteritis. No bowel obstruction. Left colonic diverticulosis without CT evidence for acute diverticulitis. Small nonobstructing stones in the lower pole of the left kidney. Cholelithiasis. Fatty liver.
[2018-09-11 17:17] VITALS: BP 148/76; RESP 18; TEMP 98.1
[2018-09-11 22:41] VITALS: O2SAT 98
== END 2018-09-11 17:18 | disposition home or self-care (01) ==
LOC: C.ER 13:06
DX: R10.9 Unspecified abdominal pain (principal)
CPT/HCPCS: 74177; 80053; 81001; 83690; 83735; 84100; 85025; 99285; Q9967

== ENCOUNTER 2018-11-07 23:31 | Emergency (ER) | payer MEDICAID ==
[2018-11-07 23:31] VITALS: BMI 24.0
--- NOTE | 2018-11-08 00:10 | C.PDOC ---
History Of Present Illness The patient presents to the ED for evaluation of headache and nausea which began today. Patient did not take anything for pain. She denies fever, chills, photophobia or vomiting. Time Seen by Provider: 11/08/18 00:09 Chief Complaint (Nursing): Headache History Per: Patient History/Exam Limitations: no limitations Onset/Duration Of Symptoms: Hrs Current Symptoms Are (Timing): Still Present Severity: Mild Pain Scale Rating Of: 2 Quality: Aching Associated Symptoms: denies: Photophobia, Nausea, Vomiting Recent travel outside of the [place]: No Additional History Per: Patient Past Medical History Reviewed: Historical Data, Nursing Documentation, Vital Signs Vital Signs: Last Vital Signs Temp 98.2 F 11/07/18 23:38 Pulse 67 11/07/18 23:38 Resp 14 11/07/18 23:38 BP 138/77 11/07/18 23:38 Pulse Ox 98 11/07/18 23:38 - Medical History PMH: Arthritis, Asthma, Diabetes, HTN, Hypercholesterolemia, Osteoporosis Denies: Dementia, Chronic Kidney Disease Surgical History: Appendectomy (2002) - [facility] Procedures DRAINAGE OF RIGHT UPPER LOBE BRONCHUS, ENDO, DIAGN (08/08/16) EXCISION OF RIGHT UPPER LUNG LOBE, ENDO, DIAGN (08/08/16) Family History: States: Unknown Family Hx - Social History Hx Tobacco Use: No Hx Alcohol Use: No Hx Substance Use: No - Immunization History Hx Tetanus Toxoid Vaccination: Yes Hx Influenza Vaccination: No Hx Pneumococcal Vaccination: No Review Of Systems Constitutional: Negative for: Fever, Chills Eyes: Negative for: Vision Change, Other (photophobia ) Cardiovascular: Negative for: Chest Pain, Palpitations Respiratory: Negative for: Cough, Shortness of Breath Gastrointestinal: Positive for: Nausea. Negative for: Vomiting, Abdominal Pain, Diarrhea Genitourinary: Negative for: Dysuria, Frequency, Hematuria Skin: Negative for: Rash, Lesions, Jaundice, Bruising Neurological: Positive for: Headache. Negative for: Weakness, Numbness Physical Exam - Physical Exam Appears: Non-toxic, No Acute Distress Skin: Warm, Dry Head: Normacephalic Eye(s): bilateral: Normal Inspection Oral Mucosa: Moist Teeth: No Normal Dentition (poor) Neck: Supple Chest: Symmetrical, No Deformity, No Tenderness Cardiovascular: Rhythm Regular, No Murmur Respiratory: No Rales, No Rhonchi, No Wheezing Extremity: Normal ROM, Capillary Refill (less than 2 seconds ) Neurological/Psych: Oriented x3 Gait: Steady ED Course And Treatment - Laboratory Results Result Diagrams: 11/08/18 00:37 11/08/18 00:33 O2 Sat by Pulse Oximetry: 98 (on RA) Pulse Ox Interpretation: Normal Progress Note: Bloodwork and urinalysis ordered and reviewed. Zofran IVP given. Reevaluation Time: 06:06 Reassessment Condition: Improved Medical Decision Making Medical Decision Making: Upon provider reevaluation patient is feeling better, is medically stable, and requires no further treatment in the ED at this time. Patient will be discharged home with Rx for zofran . Counseling was provided and all questions were answered regarding diagnosis and need for follow up with the referred clinic. There is agreement to discharge plan. Return if symptoms persist or worsen. Disposition Counseled Patient/Family Regarding: Studies Performed, Diagnosis, Need For Followup - Disposition Referrals: Mary Curtis [Staff Provider] - Disposition: HOME/ ROUTINE Disposition Time: 00:10 Condition: FAIR Additional Instructions: por favor regrese si los sntomas recurren Prescriptions: Ondansetron ODT [Zofran ODT] 1 odt PO BID PRN #6 odt PRN Reason: Nausea/Vomiting Instructions: Migraine Headache (DC) Forms: [facility] (Syriac) Print Language: BELARUSIAN - Clinical Impression Clinical Impression: Migraine - Scribe Statement The provider has reviewed the documentation as recorded by the Scribe (Nola Dye) Provider Attestation: All medical record entries made by the Scribe were at my direction and personally dictated by me. I have reviewed the chart and agree that the record accurately reflects my personal performance of the history, physical exam, medical decision making, and the department course for this patient. I have also personally directed, reviewed, and agree with the discharge instructions and disposition.
[2018-11-08 00:29] LABS: BASO % 0.6 % (0.0-2.0); EOS # 0.1 K/uL (0.0-0.7); HEMOGLOBIN 13.5 g/dL (11.0-16.0); LYMPH # 2.9 K/uL (1.0-4.3); LYMPH % 40.1 % (20.0-40.0); MEAN CELL VOLUME 94.2 fL (81.0-99.0); MEAN CORPUSCULAR HEMOGLOBIN 31.1 pg (27.0-31.0); MEAN PLATELET VOLUME 9.1 fL (7.2-11.7); MONO # 0.9 K/uL (0.0-0.8); MONO % 11.9 % (0.0-10.0); NEUT # 3.2 K/uL (1.8-7.0); NEUT % 45.4 % (50.0-75.0); RBC 4.33 Mil/uL (3.80-5.20); RED CELL DISTRIBUTION WIDTH 13.2 % (11.5-14.5); WHITE BLOOD COUNT 7.1 K/uL (4.8-10.8)
[2018-11-08 00:41] LABS: ALB/GLOB RATIO 1.4 (1.0-2.1); ALBUMIN 4.3 g/dL (3.5-5.0); ALT/SGPT 18 U/L (9-52); AST/SGOT 24 U/L (14-36); BLOOD UREA NITROGEN 18 mg/dL (7-17); CALCIUM 8.8 mg/dl (8.6-10.4); GFR NON-AFRICAN AMERICAN > 60
[2018-11-08 01:43] LABS: SQUAMOUS EPITHIAL 6 /hpf (0-5); URINE BACTERIA OCC (<OCC); URINE BILIRUBIN NEGATIVE (NEGATIVE); URINE BLOOD NEGATIVE (NEGATIVE); URINE CLARITY Clear (Clear); URINE COLOR Yellow (YELLOW); URINE GLUCOSE (UA) NORMAL (Normal); URINE LEUKOCYTE ESTERASE 1+ Leu/uL (Negative); URINE PROTEIN NEGATIVE (NEGATIVE); URINE UROBILINOGEN NORMAL mg/dL (0.2-1.0)
[2018-11-08] MEDS ORDERED: Morphine 4 MG/ML VIAL IV ONE (04:02)
[2018-11-08 04:12] VITALS: RESP 18
[2018-11-08] MEDS ORDERED: Magnesium Sulfate 1 gm in D5W 2 GM/200 ML BAG IVPB ONE (04:21)
[2018-11-08] MEDS: Magnesium Sulfate 1 gm in D5W 1 GM/100 ML BAG IVPB SCH ×2 (04:28→04:50)
[2018-11-08 06:09] VITALS: O2SAT 98
[2018-11-08 06:21] VITALS: BP 149/75; PULSE 55; TEMP 97.7
--- NOTE | 2018-11-08 12:22 | CT ---
Date of service: 11/08/2018 PROCEDURE: CT HEAD WITHOUT CONTRAST. HISTORY: headache COMPARISON: Noncontrast head CT 11/21/2016. TECHNIQUE: Axial computed tomography images were obtained through the head/brain without intravenous contrast. Radiation dose: Total exam DLP = 1087.38 mGy-cm. This CT exam was performed using one or more of the following dose reduction techniques: Automated exposure control, adjustment of the mA and/or kV according to patient size, and/or use of iterative reconstruction technique. FINDINGS: HEMORRHAGE: No intracranial hemorrhage. BRAIN: Normal viera-white matter differentiation and density are appreciated throughout the cerebrum and cerebellum with the brainstem appearing unremarkable as well. There is no mass effect. There is no suspicious extra-axial fluid collection and the midline brain anatomy appears diffusely unremarkable. VENTRICLES: Unremarkable. No hydrocephalus. CALVARIUM: Unremarkable. PARANASAL SINUSES: Unremarkable as visualized. No significant inflammatory changes. MASTOID AIR CELLS: Unremarkable as visualized. No inflammatory changes. OTHER FINDINGS: None. IMPRESSION: Unremarkable unenhanced head CT. Concordant preliminary report from [place], 11/08/2018, 3 a.m..
== END 2018-11-08 06:39 | disposition home or self-care (01) ==
LOC: C.ER 23:31
DX: G43.909 Migraine, unspecified, not intractable, without status migrainosus (principal)
CPT/HCPCS: 70450; 80053; 81001; 85025; 96365; 96366; 96375; 99285; J1885; J2270; J2405; J3475

== ENCOUNTER 2019-01-16 11:26 | Emergency (ER) | payer MEDICAID ==
[2019-01-16 11:26] VITALS: BMI 24.0
[2019-01-16] MEDS ORDERED: Albuterol-Ipratrop 3 mg / 0.5 (3 ml) UD INH STA ×2 (11:47)
[2019-01-16] MEDS ORDERED: Albuterol-Ipratrop 3 mg / 0.5 (3 ml) UD ONE (11:59)
--- NOTE | 2019-01-16 12:11 | C.PDOC ---
History Of Present Illness 68 year old female presents for evaluation of SOB associated with cough and wheezing x3 days. The pt reports productive cough. Denies fever, chills, CP, and any other associated symptoms. Time Seen by Provider: 01/16/19 11:40 Chief Complaint (Nursing): Shortness Of Breath History Per: Patient History/Exam Limitations: no limitations Onset/Duration Of Symptoms: Days (x3) Current Symptoms Are (Timing): Still Present Associated Symptoms: Productive Cough. denies: Fever, Chills, Chest Pain Recent travel outside of the [place]: No Past Medical History Reviewed: Historical Data, Nursing Documentation, Vital Signs Vital Signs: Last Vital Signs Temp 98.8 F 01/16/19 11:35 Pulse 75 01/16/19 11:35 Resp 18 01/16/19 11:45 BP 146/87 01/16/19 11:35 Pulse Ox 98 01/16/19 11:45 - Medical History PMH: Arthritis, Asthma, Diabetes, HTN, Hypercholesterolemia, Osteoporosis Denies: Dementia, Chronic Kidney Disease Surgical History: Appendectomy (2002) - [facility] Procedures DRAINAGE OF RIGHT UPPER LOBE BRONCHUS, ENDO, DIAGN (08/08/16) EXCISION OF RIGHT UPPER LUNG LOBE, ENDO, DIAGN (08/08/16) Family History: States: Unknown Family Hx - Social History Hx Tobacco Use: No Hx Alcohol Use: No Hx Substance Use: No - Immunization History Hx Tetanus Toxoid Vaccination: Yes Hx Influenza Vaccination: No Hx Pneumococcal Vaccination: No Review Of Systems Except As Marked, All Systems Reviewed And Found Negative. Constitutional: Negative for: Fever Cardiovascular: Negative for: Chest Pain Respiratory: Positive for: Cough (productive. ), Shortness of Breath, Wheezing Physical Exam - Physical Exam Appears: Non-toxic, No Acute Distress Skin: Warm, Dry Head: Atraumatic, Normacephalic Eye(s): bilateral: Normal Inspection Oral Mucosa: Moist Neck: Normal ROM, Supple Chest: Symmetrical, No Deformity Cardiovascular: Rhythm Regular, No Murmur Respiratory: No Rales, No Rhonchi, Wheezing (Bilateral expiratory wheezing.) Gastrointestinal/Abdominal: Normal Exam, Soft, No Tenderness Extremity: Bilateral: Atraumatic, Normal Color And Temperature, Normal ROM Neurological/Psych: Oriented x3, Normal Speech, Normal Cognition ED Course And Treatment - Laboratory Results Result Diagrams: 01/16/19 12:01/16/19 12:08 ECG: Interpreted By Me, Viewed By Me ECG Rhythm: Sinus Rhythm Interpretation Of ECG: no st elevation, qt normal Rate From EC O2 Sat by Pulse Oximetry: 98 (RA) Pulse Ox Interpretation: Normal - Other Rad CXR X-Ray: Viewed By Me, Read By Radiologist Interpretation: FINDINGS: LUNGS: The lungs are well inflated and clear. There is mild pulmonary venous congestion. No focal consolidation. PLEURA: No pneumothorax or pleural effusion. CARDIOVASCULAR: There is mild cardiomegaly. There are aortic atherosclerotic calcifications present. OSSEOUS STRUCTURES: Within normal limits for the patient's age. VISUALIZED UPPER ABDOMEN: Normal. OTHER FINDINGS: None. IMPRESSION: No active pulmonary disease. Medical Decision Making Medical Decision Making: Initial plan: -EKG -Blood sent -CXR -Duoneb -Solu-medrol Progress/Update: Pt stable for discharge home. Prescribed Mucinex, Zithromax and Ventolin. Advised to follow-up with PMD. Disposition Counseled Patient/Family Regarding: Studies Performed, Diagnosis, Need For Followup, Rx Given - Disposition Referrals: Bryan Harmon MD [Non-Staff] - Disposition: HOME/ ROUTINE Disposition Time: 12:56 Condition: STABLE Prescriptions: Albuterol HFA [Ventolin HFA 90 mcg/actuation (8 g)] 2 puff IH [id number] #1 puff Azithromycin [Zithromax] 250 mg PO DAILY #6 tab Guaifenesin [Mucinex] 600 mg PO BID #10 tab.[id number] Instructions: Acute Bronchitis Forms: [facility] (Haitian) Print Language: ESTONIAN - POA Present On Arrival: None - Clinical Impression Clinical Impression: Bronchitis - PA / [employer] MANAGER / Resident Statement MD/DO has reviewed & agrees with the documentation as recorded. - Scribe Statement The provider has reviewed the documentation as recorded by the Scribe (Brittni Schneider) Provider Attestation: All medical record entries made by the Scribe were at my direction and personally dictated by me. I have reviewed the chart and agree that the record accurately reflects my personal performance of the history, physical exam, medical decision making, and the department course for this patient. I have also personally directed, reviewed, and agree with the discharge instructions and disposition.
[2019-01-16 12:12] LABS: BASO % 0.7 % (0.0-2.0); EOS # 0.2 K/uL (0.0-0.7); EOS % 3.2 % (0.0-4.0); HEMOGLOBIN 14.1 g/dL (11.0-16.0); LYMPH # 1.8 K/uL (1.0-4.3); LYMPH % 33.6 % (20.0-40.0); MEAN CELL VOLUME 92.7 fL (81.0-99.0); MEAN CORPUSCULAR HGB CONC 33.5 g/dL (33.0-37.0); MEAN PLATELET VOLUME 9.2 fL (7.2-11.7); MONO # 1.1 K/uL (0.0-0.8); MONO % 19.8 % (0.0-10.0); NEUT # 2.3 K/uL (1.8-7.0); NEUT % 42.7 % (50.0-75.0); NRBC % 0.1 % (0.0-2.0); RBC 4.55 Mil/uL (3.80-5.20); RED CELL DISTRIBUTION WIDTH 13.8 % (11.5-14.5); WHITE BLOOD COUNT 5.3 K/uL (4.8-10.8)
[2019-01-16 12:23] LABS: ALB/GLOB RATIO 1.4 (1.0-2.1); ALBUMIN 4.7 g/dL (3.5-5.0); ALT/SGPT 14 U/L (9-52); AST/SGOT 27 U/L (14-36); BLOOD UREA NITROGEN 13 mg/dL (7-17); CALCIUM 9.1 mg/dl (8.6-10.4); GFR NON-AFRICAN AMERICAN > 60
--- NOTE | 2019-01-16 12:27 | RAD ---
Date of service: 01/16/2019 PROCEDURE: CHEST RADIOGRAPH, 1 VIEW HISTORY: SOB COMPARISON: 02/11/2018. FINDINGS: LUNGS: The lungs are well inflated and clear. There is mild pulmonary venous congestion. No focal consolidation. PLEURA: No pneumothorax or pleural effusion. CARDIOVASCULAR: There is mild cardiomegaly. There are aortic atherosclerotic calcifications present. OSSEOUS STRUCTURES: Within normal limits for the patient's age. VISUALIZED UPPER ABDOMEN: Normal. OTHER FINDINGS: None. IMPRESSION: No active pulmonary disease.
[2019-01-16 13:19] VITALS: BP 144/78; PULSE 74; RESP 20; TEMP 98.3; O2SAT 97
--- NOTE | 2019-01-18 10:04 | CARD ---
APPROVED REPORT Date of service: 01/16/2019 EKG Measurement Heart [id number] <Conclusion> Normal sinus rhythm Normal ECG
== END 2019-01-16 13:16 | disposition home or self-care (01) ==
LOC: C.ER 11:26
DX: J40 Bronchitis, not specified as acute or chronic (principal)
CPT/HCPCS: 71045; 80053; 85025; 93005; 94640; 96374; 99285; J2930

== ENCOUNTER 2019-01-21 16:09 | Emergency (ER) | payer MEDICAID ==
[2019-01-21 16:10] VITALS: BMI 24.0
[2019-01-21] MEDS ORDERED: Sodium Chloride 0.9% 1,000 ML IV ONE (16:53)
[2019-01-21] MEDS ORDERED: Sodium Chloride 0.9% 250 ML IV ONE (17:09)
[2019-01-21 17:11] LABS: BASO % 0.6 % (0.0-2.0); EOS # 0.1 K/uL (0.0-0.7); EOS % 1.7 % (0.0-4.0); HEMOGLOBIN 14.2 g/dL (11.0-16.0); LYMPH % 38.4 % (20.0-40.0); MEAN CELL VOLUME 92.4 fL (81.0-99.0); MEAN CORPUSCULAR HEMOGLOBIN 30.9 pg (27.0-31.0); MEAN CORPUSCULAR HGB CONC 33.5 g/dL (33.0-37.0); MEAN PLATELET VOLUME 8.3 fL (7.2-11.7); MONO # 0.8 K/uL (0.0-0.8); MONO % 10.1 % (0.0-10.0); NEUT # 3.9 K/uL (1.8-7.0); NEUT % 49.2 % (50.0-75.0); RBC 4.59 Mil/uL (3.80-5.20); RED CELL DISTRIBUTION WIDTH 13.7 % (11.5-14.5); WHITE BLOOD COUNT 7.9 K/uL (4.8-10.8)
[2019-01-21 17:31] LABS: ALB/GLOB RATIO 1.4 (1.0-2.1); ALBUMIN 4.6 g/dL (3.5-5.0); ALT/SGPT 16 U/L (9-52); AST/SGOT 31 U/L (14-36); BLOOD UREA NITROGEN 11 mg/dL (7-17); CALCIUM 9.4 mg/dl (8.6-10.4); GFR NON-AFRICAN AMERICAN > 60
--- NOTE | 2019-01-21 17:43 | RAD ---
HISTORY: cough r/o infiltrate COMPARISON: Chest x-ray performed 01/16/19 TECHNIQUE: Chest, one view. FINDINGS: Examination limited by habitus. LUNGS: Biapical pleural thickening. No focal consolidation. Please note that chest x-ray has limited sensitivity for the detection of pulmonary masses. PLEURA: No significant pleural effusion identified. No definite pneumothorax . CARDIOVASCULAR: Borderline cardiomegaly. Atherosclerotic calcification of the aorta.. OSSEOUS STRUCTURES: Degenerative changes. VISUALIZED UPPER ABDOMEN: Mild elevation of the right hemidiaphragm. OTHER FINDINGS: None. IMPRESSION: Borderline cardiomegaly. Biapical pleural thickening.
--- NOTE | 2019-01-21 18:02 | C.PDOC ---
History Of Present Illness 68 year old female presents to the ED complaining of headache and bodyaches for 4-5 days. Reports she was seen in the ED 5 days ago and was given antibiotics for bronchitis. Denies any recent travels or sick contacts. Denies chest pain, shortness of breath, fever, chills, nausea, vomiting, diarrhea, neck pain, or any other physical complaints. Time Seen by Provider: 01/21/19 16:40 Chief Complaint (Nursing): Headache History Per: Patient History/Exam Limitations: no limitations Onset/Duration Of Symptoms: Days Current Symptoms Are (Timing): Still Present Reports Recently: Seen In ED Past Medical History Reviewed: Historical Data, Nursing Documentation, Vital Signs Vital Signs: Last Vital Signs Temp 97.7 F 01/21/19 16:18 Pulse 77 01/21/19 16:18 Resp 20 01/21/19 16:18 BP 164/90 H 01/21/19 16:18 Pulse Ox 98 01/21/19 16:18 - Medical History PMH: Arthritis, Asthma, Diabetes, HTN, Hypercholesterolemia, Osteoporosis Denies: Dementia, Chronic Kidney Disease Surgical History: Appendectomy (2002) - [facility] Procedures DRAINAGE OF RIGHT UPPER LOBE BRONCHUS, ENDO, DIAGN (08/08/16) EXCISION OF RIGHT UPPER LUNG LOBE, ENDO, DIAGN (08/08/16) Family History: States: No Known Family Hx - Social History Hx Tobacco Use: No Hx Alcohol Use: No Hx Substance Use: No - Immunization History Hx Tetanus Toxoid Vaccination: Yes Hx Influenza Vaccination: No Hx Pneumococcal Vaccination: No Review Of Systems Except As Marked, All Systems Reviewed And Found Negative. Constitutional: Positive for: Other (bodyaches). Negative for: Fever, Chills Cardiovascular: Negative for: Chest Pain Respiratory: Negative for: Shortness of Breath Gastrointestinal: Negative for: Nausea, Vomiting, Abdominal Pain, Diarrhea Musculoskeletal: Negative for: Neck Pain Neurological: Positive for: Headache Physical Exam - Physical Exam Appears: Non-toxic, No Acute Distress Skin: Warm, Dry, No Rash Head: Atraumatic, Normacephalic Eye(s): bilateral: Normal Inspection, PERRL, EOMI Nose: Normal Oral Mucosa: Moist Neck: Supple Chest: Symmetrical Cardiovascular: Rhythm Regular Respiratory: Normal Breath Sounds, No Rales, No Rhonchi, No Wheezing Gastrointestinal/Abdominal: Soft, No Tenderness Neurological/Psych: Oriented x3, Normal Speech Gait: Steady ED Course And Treatment - Laboratory Results Result Diagrams: 01/21/19 17:06 01/21/19 17:06 Lab Results: Total Bilirubin 0.7 mg/dL (0.2-1.3) 01/21/19 17:06 AST 31 U/L (14-36) 01/21/19 17:06 ALT 16 U/L (9-52) 01/21/19 17:06 Alkaline Phosphatase 99 U/L (38-126) 01/21/19 17:06 Total Protein 7.8 g/dL (6.3-8.3) 01/21/19 17:06 Albumin 4.6 g/dL (3.5-5.0) 01/21/19 17:06 Globulin 3.3 gm/dL (2.2-3.9) 01/21/19 17:06 Albumin/Globulin Ratio 1.4 (1.0-2.1) 01/21/19 17:06 O2 Sat by Pulse Oximetry: 98 (RA) Pulse Ox Interpretation: Normal Medical Decision Making Medical Decision Making: Plan - Toradol 30mg IVP - Zofran 4mg IVP - IV fluids - Urine cultures - UA CXR results: IMPRESSION: Borderline cardiomegaly. Biapical pleural thickening. Disposition - Disposition Referrals: Amol Govea, [Non-Staff] - Disposition: HOME/ ROUTINE Disposition Time: 18:35 Condition: IMPROVED Additional Instructions: REYNALDO BHANDARI, thank you for letting us take care of you today. The emergency medical care you received today was directed at your acute symptoms. If you were prescribed any medication, please fill it and take as directed. It may take several days for your symptoms to resolve. Return to the Emergency Department if your symptoms worsen, do not improve, or if you have any other problems. Please contact your doctor or call one of the physicians/clinics you have been referred to that are listed on the Patient Visit Information form that is included in your discharge packet. Bring any paperwork you were given at discharge with you along with any medications you are taking to your follow up visit. Our treatment cannot replace ongoing medical care by a primary care provider outside of the emergency department. Thank you for allowing the [facility] team to be part of your care today. Follow up with your primary care doctor in 2-3 days for re-evaluation and further management. Prescriptions: Oseltamivir Phosphate [Tamiflu] 75 mg PO BID #10 capsule Instructions: Viral Syndrome (DC) Forms: [email or web address] (Nepalese) - Clinical Impression Clinical Impression: Viral syndrome - Scribe Statement The provider has reviewed the documentation as recorded by the Scribe Sherry Crane All medical record entries made by the Scribe were at my direction and personally dictated by me. I have reviewed the chart and agree that the record accurately reflects my personal performance of the history, physical exam, medical decision making, and the department course for this patient. I have also personally directed, reviewed, and agree with the discharge instructions and disposition.
[2019-01-21 18:18] LABS: SQUAMOUS EPITHIAL < 1 /hpf (0-5); URINE BILIRUBIN NEGATIVE (NEGATIVE); URINE BLOOD NEGATIVE (NEGATIVE); URINE CLARITY Clear (Clear); URINE COLOR Yellow (YELLOW); URINE GLUCOSE (UA) NORMAL (Normal); URINE LEUKOCYTE ESTERASE NEG Leu/uL (Negative); URINE PROTEIN NEGATIVE (NEGATIVE); URINE UROBILINOGEN NORMAL mg/dL (0.2-1.0)
[2019-01-21 19:38] VITALS: BP 123/71; PULSE 68; RESP 17; TEMP 98; O2SAT 97
== END 2019-01-21 19:38 | disposition home or self-care (01) ==
LOC: C.ER 16:09
DX: B34.9 Viral infection, unspecified (principal); E11.9 Type 2 diabetes mellitus without complications; E78.00 Pure hypercholesterolemia, unspecified; I10 Essential (primary) hypertension; M81.0 Age-related osteoporosis without current pathological fracture
CPT/HCPCS: 71045; 80053; 81001; 85025; 87086; 96374; 96375; 99285; J1885; J2405; J7030